=== PATIENT | male | born 1955 | race Caucasian/White ===

== ENCOUNTER 2019-12-04 16:18 | Emergency (ER) | payer SELFPAY ==
[2019-12-04] MEDS ORDERED: Lidocaine/EPINEPHrine/Tetracaine Soln 1 ML TOP ONE (16:20)
[2019-12-04] MEDS ORDERED: Lidocaine 1% with EPINEPHrine 1:100,000 10 ML MDV INJECT ONE (16:20)
[2019-12-04] MEDS ORDERED: Diphtheria,Pertussis(Acell),Tetanus Vaccine 0.5 ML Syringe IM ONE (16:21)
--- NOTE | 2019-12-04 16:53 | CT ---
CT cervical spine Technique: Multiple axial sections were obtained from above C1 to the bottom of T1. Reconstructed coronal and sagittal images were obtained. Findings: Degenerative change is noted between the dens and anterior arch of C1. Fairly severe disc space narrowing at C3-4, C5-6 and C6-7. Mild disc space narrowing is noted at C4-5. Anterior osteophytes are noted at C3-4 through C6-7. Slight posterior osteophytes are noted at C5-6 and C6-7. Mild left-sided neural foraminal stenosis is noted at C5-6. Moderate left-sided neural foraminal stenosis is noted at C6-7. Other neural foramina are fairly well patent. No central canal stenosis is seen. Ligamentum nuchal calcification is seen. No acute fracture is seen. No abnormal subluxation is seen. Degenerative spurring is noted within the uncovertebral joints throughout the cervical spine most prominent at C5-6 and C6-7. Impression: 1. Degenerative change as described above. 2. No acute abnormality is appreciated on CT study of the cervical spine. Diagnostic code #2 This report was dictated in MDT
--- NOTE | 2019-12-04 16:54 | EDM.PDOC ---
ED HPI GENERAL MEDICAL PROBLEM - General Chief Complaint: Trauma Stated Complaint: [facility] Time Seen by Provider: 12/04/19 16:19 Source of Information: Reports: Patient, EMS History Limitations: Reports: No Limitations - History of Present Illness INITIAL COMMENTS - FREE TEXT/NARRATIVE: The patient presents by [facility] for a fall and head injury. 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 He thinks he was pulling on the filter and it let loose and he fell. He had a positive LOC for an unknown period of time. Co-workers said they were gone for about 20 minutes. He was found on the ground. He may have hit the tracks on the way down. He has a headache. He has no neck pain, chest pain, or abdominal pain. He has no arm or leg pain. He is not sure of his last tetanus. Onset: Sudden Duration: Minutes: Location: Reports: Head Quality: Reports: Sharp Severity: Moderate Improves with: Reports: Immobilization Worsens with: Reports: Movement Context: Reports: Trauma (Fell off of a bulldozer) Associated Symptoms: Reports: Headaches. Denies: Chest Pain, Fever/Chills, Nausea/Vomiting, Shortness of Breath Headache Pain Score (Numeric/FACES): 7 - Related Data Allergies Allergy/AdvReac Type Severity Reaction Status Date / Time No Known Allergies Allergy Verified 12/04/19 16:22 Home Meds: Home Meds . [No Known Home Meds] 12/04/19 [History] Past Medical History - Past Health History Medical/Surgical History: Denies Medical/Surgical History Social & Family History - Tobacco Use Smoking Status *Q: Never Smoker - Recreational Drug Use Recreational Drug Use: No Review of Systems - Review of Systems Review Of Systems: See Below Constitutional: Reports: No Symptoms Eyes: Reports: No Symptoms Ears: Reports: No Symptoms Nose: Reports: No Symptoms Mouth/Throat: Reports: No Symptoms Respiratory: Reports: No Symptoms Cardiovascular: Reports: No Symptoms GI/Abdominal: Reports: No Symptoms Musculoskeletal: Reports: No Symptoms ED EXAM, GENERAL - Physical Exam Exam: See Below Exam Limited By: No Limitations General Appearance: Alert, No Apparent Distress Ears: Normal External Exam Nose: Normal Inspection Head: Other (7cm laceration to the top of his head. 2cm laceration to the right oriental orthodox) ED TRAUMA PROCEDURES - Laceration/Wound Repair Head Lac/Wound Length In cm: 7 Appearance: Subcutaneous, Irregular, Clean Anesthetic Type: Local Local Anesthesia - Lidocaine (Xylocaine): 1% with EPI Skin Prep: Saline Exploration/Debridement/Repair: Wound Explored, In a Bloodless Field, Explored to Base Closed With: Vini # of Sutures: 13 Tetanus Status Addressed: Yes Complications: No Course - Vital Signs Last Recorded V/S: Last Vital Signs Temp 96.7 F L 12/04/19 16:19 Pulse 100 12/04/19 16:19 Resp 23 H 12/04/19 16:19 BP 137/78 12/04/19 16:19 Pulse Ox 95 12/04/19 16:19 - Orders/Labs/Meds Orders: Active Orders 24 hr Category Date Time Status Vaccines to be Administered [RC] PER UNIT ROUTINE Care 12/04/19 16:21 Active Meds: Medications Discontinued Medications Generic Name Dose Route Start Last Admin Trade Name Veronika PRN Reason Stop Dose Admin Diphtheria/Tetanus/Acell Pertussis 0.5 ml 12/04/19 16:21 12/04/19 16:35 Adacel IM 12/04/19 16:22 0.5 ml .ONCE ONE Administration Lidocaine/Epinephrine 10 ml 12/04/19 16:20 12/04/19 16:36 Xylocaine 1% With Epinephrine 1:100,000 INJECT 12/04/19 16:21 10 ml ONETIME ONE Administration Lidocaine/Tetracaine 1 ml 12/04/19 16:20 12/04/19 16:36 Let Soln TOP 12/04/19 16:21 1 ml ONETIME ONE Administration - Re-Assessments/Exams Free Text/Narrative Re-Assessment/Exam: 12/04/19 16:54 I ordered an IV saline lock, CT of his head and cervical spine and I updated his tetanus. 12/04/19 17:[address] of his head shows soft tissue swelling within the right frontal scalp. Mild senescent change. No acute intracranial abnormality is appreciated. The CT of his cervical spine shows degenerative change. No acute abnormality is appreciated on CT study of the cervical spine. I closed his wounds. I will discharge him home. Departure - Departure Time of Disposition: 17:35 Disposition: Home, Self-Care 01 Condition: Good Clinical Impression: Fall Qualifiers: Encounter type: initial encounter Qualified Code(s): W19.XXXA - Unspecified fall, initial encounter Laceration of scalp Qualifiers: Encounter type: initial encounter Qualified Code(s): S01.01XA - Laceration without foreign body of scalp, initial encounter Facial laceration Qualifiers: Encounter type: initial encounter Qualified Code(s): S01.81XA - Laceration without foreign body of other part of head, initial encounter Head injury Qualifiers: Encounter type: initial encounter Qualified Code(s): S09.90XA - Unspecified injury of head, initial encounter - Discharge Information *PRESCRIPTION DRUG MONITORING PROGRAM REVIEWED*: Not Applicable *COPY OF PRESCRIPTION DRUG MONITORING REPORT IN PATIENT YOANA: Not Applicable Referrals: PCP,None [Primary Care Provider] - Myah Melendez, SEED SERVICE ADVISOR [Nurse Practitioner] - 1 Week Forms: ED Department Discharge Additional Instructions: Clean the wound with warm soapy water 2 times per day and apply antibiotic ointment after. Have the vini and sutures removed in a week. Look for any signs of infection such as redness, swelling, pain or drainage. If you see any of these signs please return or see your doctor. You may need antibiotics. Sepsis Event Note (ED) - Evaluation Sepsis Screening Result: No Definite Risk - Focused Exam Vital Signs: Vital Signs Temp Pulse Resp BP Pulse Ox 12/04/19 16:19 96.7 F L 100 23 H 137/78 95 - My Orders Last 24 Hours: My Active Orders 12/04/19 16:21 Vaccines to be Administered [RC] PER UNIT ROUTINE - Assessment/Plan Last 24 Hours: My Active Orders 12/04/19 16:21 Vaccines to be Administered [RC] PER UNIT ROUTINE ED LACERATION PROCEDURES - Laceration/Wound Repair Head Lac/wound length in cm: 3 Appearance: Subcutaneous, Linear Anesthetic Type: Local Local Anesthesia - Lidocaine (Xylocaine): 1% with EPI (and LET) Skin Prep: Saline Exploration/Debridement/Repair: Wound Explored, In a Bloodless Field, Explored to Base Suture Size: 4-0 # of Sutures: 5 Suture Type: Nylon, Interrupted, Simple Tetanus Status Addressed: Yes Complications: No
--- NOTE | 2019-12-04 16:57 | CT ---
Head CT Technique: Multiple axial sections through the brain were obtained. Intravenous contrast was not utilized. Findings: Soft tissue swelling is seen within the frontal scalp. Ventricles along with basal cisterns and sulci over the convexities are mildly prominent. Mild areas of diminished density are noted within the basal ganglia. Minimal areas of diminished density are noted within the periventricular white matter. These findings are most likely due to small vessel ischemic demyelination change. Atherosclerotic calcification is seen within the carotid siphon. No evidence of intracranial hemorrhage. No midline shift or mass-effect is seen. Bone window settings were reviewed. Visualized mastoid sinuses and visualized paranasal sinuses show nothing acute. No acute calvarial finding is seen. Impression: 1. Soft tissue swelling within the right frontal scalp. 2. Mild senescent change as noted above. 3. No acute intracranial abnormality is appreciated. Diagnostic code #2 This report was dictated in MDT
== END 2019-12-04 18:33 | disposition home or self-care (01) ==
LOC: JD.ED 16:18
DX: S01.01XA Laceration without foreign body of scalp, initial encounter (principal); S01.81XA Laceration without foreign body of other part of head, initial encounter; Z23 Encounter for immunization; W22.8XXA Striking against or struck by other objects, initial encounter
CPT/HCPCS: 12002; 70450; 70450-26; 72125; 72125-26; 90471; 90715; 99282; 99283-25